=== PATIENT | female | born 1955 | race Caucasian/White ===

== ENCOUNTER → 2017-01-01 | Outpatient (CLI) | payer BC ==
--- NOTE | 2017-01-02 10:27 | MM ---
Reason for exam: screening (asymptomatic). Last mammogram was performed 1 year and 1 month ago. History: Patient is postmenopausal. Family history of breast cancer in paternal cousin at age 40 and breast cancer in maternal cousin at age 50. Took estrogen for 2 years. Physical Findings: A clinical breast exam by your physician is recommended on an annual basis and results should be correlated with mammographic findings. MG Screening Mammo w CAD Bilateral CC and MLO view(s) were taken. Prior study comparison: December 05, 2015, bilateral MG screening mammo w CAD. October 25, 2014, bilateral MG screening mammo w CAD. There are scattered fibroglandular densities. There is no discrete abnormality. No significant changes when compared with prior studies. ASSESSMENT: Negative, BI-RAD 1 RECOMMENDATION: Routine screening mammogram of both breasts in 1 year.
== END | disposition home or self-care (01) ==
LOC: RADMAMWWP 07:50
PROVIDERS: ATTEND Obstetrics & Gynecology
DX: Z12.31 Encounter for screening mammogram for malignant neoplasm of breast (principal); Z80.3 Family history of malignant neoplasm of breast

== ENCOUNTER → 2018-01-29 | Outpatient (CLI) | payer BC ==
--- NOTE | 2018-01-30 12:04 | MM ---
Reason for exam: screening (asymptomatic). Last mammogram was performed 1 year and 1 month ago. History: Patient is postmenopausal. Family history of breast cancer in paternal cousin at age 40 and breast cancer in maternal cousin at age 50. Took estrogen for 2 years. Physical Findings: A clinical breast exam by your physician is recommended on an annual basis and results should be correlated with mammographic findings. MG 3D Screening Mammo W/Cad Bilateral CC and MLO view(s) were taken. Prior study comparison: January 01, 2017, bilateral MG screening mammo w CAD. December 05, 2015, bilateral MG screening mammo w CAD. There are scattered fibroglandular densities. No significant changes when compared with prior studies. ASSESSMENT: Benign, BI-RAD 2 RECOMMENDATION: Routine screening mammogram of both breasts in 1 year.
== END | disposition home or self-care (01) ==
LOC: RADMAMWWP 07:50
PROVIDERS: ATTEND Obstetrics & Gynecology
DX: Z12.31 Encounter for screening mammogram for malignant neoplasm of breast (principal); Z80.3 Family history of malignant neoplasm of breast
CPT/HCPCS: 77063; 77067

== ENCOUNTER → 2019-02-12 | Outpatient (CLI) | payer BC ==
--- NOTE | 2019-02-16 08:52 | MM ---
Reason for exam: screening (asymptomatic). Last mammogram was performed 1 year ago. History: Patient is postmenopausal. Family history of breast cancer in paternal cousin at age 40 and breast cancer in maternal cousin at age 50. Took estrogen for 2 years. Physical Findings: A clinical breast exam by your physician is recommended on an annual basis and results should be correlated with mammographic findings. MG 3D Screening Mammo W/Cad Bilateral CC and MLO view(s) were taken. Prior study comparison: January 29, 2018, bilateral MG 3d screening mammo w/cad. January 01, 2017, bilateral MG screening mammo w CAD. There are scattered fibroglandular densities. Superior asymmetric density right breast incompletely disperses on 3D. No clear correlate on MLO. ASSESSMENT: Incomplete: need additional imaging evaluation, BI-RAD 0 RECOMMENDATION: Special view mammogram of the right breast. (3D) If lesion persists on supplemental views, image directed ultrasound is recommended. [facility] will attempt to contact patient to return for supplemental views and ultrasound if indicated.
== END | disposition home or self-care (01) ==
LOC: RADMAMWWP 15:00
PROVIDERS: ATTEND Obstetrics & Gynecology
DX: Z12.31 Encounter for screening mammogram for malignant neoplasm of breast (principal); Z80.3 Family history of malignant neoplasm of breast
CPT/HCPCS: 77063; 77067

== ENCOUNTER → 2019-02-17 | Outpatient (CLI) | payer BC ==
--- NOTE | 2019-02-17 10:31 | MM ---
Reason for exam: additional evaluation requested from abnormal screening. Last mammogram was performed less than 1 month ago. History: Patient is postmenopausal. Family history of breast cancer in paternal cousin at age 40 and breast cancer in maternal cousin at age 50. Took estrogen for 2 years. Physical Findings: Nurse did not find any significant physical abnormalities on exam. MG 3D Work Up W/Cad RT ML and spot compression MLO view(s) were taken of the right breast. Prior study comparison: February 12, 2019, bilateral MG 3d screening mammo w/cad. January 29, 2018, bilateral MG 3d screening mammo w/cad. There are scattered fibroglandular densities. No distinct lesion persists on additional views. These results were verbally communicated with the patient and result sheet given to the patient on 02/17/19. ASSESSMENT: Negative, BI-RAD 1 RECOMMENDATION: Return to routine screening mammogram schedule for both breasts.
== END | disposition home or self-care (01) ==
LOC: RADMAMWWP 09:24
PROVIDERS: ATTEND Obstetrics & Gynecology
DX: R92.8 Other abnormal and inconclusive findings on diagnostic imaging of breast (principal)
CPT/HCPCS: 77061; 77065

== ENCOUNTER → 2020-10-10 | Outpatient (CLI) | payer BC ==
--- NOTE | 2020-10-11 11:18 | MM ---
Reason for exam: screening (asymptomatic). Last mammogram was performed 1 year and 8 months ago. History: Patient is postmenopausal. Family history of breast cancer in paternal cousin at age 40 and breast cancer in maternal cousin at age 50. Took hormonal contraceptives for 10 years. Took estrogen for 2 years. Physical Findings: A clinical breast exam by your physician is recommended on an annual basis and results should be correlated with mammographic findings. MG 3D Screening Mammo W/Cad Bilateral CC and MLO view(s) were taken. Prior study comparison: February 17, 2019, right breast MG 3d work up w/cad RT. February 12, 2019, bilateral MG 3d screening mammo w/cad. There are scattered fibroglandular densities. There is no discrete abnormality. ASSESSMENT: Negative, BI-RAD 1 RECOMMENDATION: Routine screening mammogram of both breasts in 1 year.
== END | disposition home or self-care (01) ==
LOC: RADMAMWWP 13:07
PROVIDERS: ATTEND Obstetrics & Gynecology
DX: Z12.31 Encounter for screening mammogram for malignant neoplasm of breast (principal); Z80.3 Family history of malignant neoplasm of breast
CPT/HCPCS: 77063; 77067

== ENCOUNTER 2021-11-20 10:08 | Observation (INO) | payer BC ==
[2021-11-20] MEDS ORDERED: SODIUM CHLORIDE 0.9% 500 ML 500 ML IV STA (10:39)
--- NOTE | 2021-11-20 10:46 | ED ---
General Adult HPI - General Source: patient Mode of arrival: ambulatory Limitations: no limitations <Carolina Valdez - Last Filed: 11/20/21 16:05> <Lisa Snell - Last Filed: 11/21/21 14:53> - General Chief complaint: Shortness of Breath Stated complaint: Fever/SOB - History of Present Illness Initial comments: This 66-year-old female presents emergency department with increased shortness of breath since Saturday. Patient states she had right ankle surgery in [place] on 10/27/21 and traveled 3 days home from [place] a couple days after her surgery. Patient states she was doing well with no symptoms until 3 days ago when she began to experience pain with deep breathing, pain with coughing and mild shortness of breath that has been progressively worsening over the last couple of days. Patient denies having any clots in her past. Patient denies being on blood thinners for states she does take aspirin daily. Patient states her pain is 8/10 and she describes as tightness. Patient denies any signs or symptoms of DVT of right leg such as calf tenderness, warmth, swelling or erythema. Patient states she did have a fever of 100.5 on Saturday evening. Patient states she has a little bit less of an appetite the last couple of days. Patient denies any abdominal pain, headaches, nausea, vomiting, hemoptysis, change in vision, change in bowel or bladder, weakness. (Carolina Valdez) - Related Data Home Medications Medication Instructions Recorded Confirmed Ascorbic Acid [Vitamin C] 1,000 mg PO DAILY 11/20/21 11/20/21 Calcium Carbonate [Calcium] 600 mg PO DAILY 11/20/21 11/20/21 Cholecalciferol [Vitamin D3 (25 50 mcg PO DAILY 11/20/21 11/20/21 Mcg = 1000 Iu)] Famotidine 20 mg PO DAILY 11/20/21 11/20/21 Multivitamins, Thera [Multivitamin 1 tab PO DAILY 11/20/21 11/20/21 (formulary)] guaiFENesin [Mucinex] 600 mg PO DAILY 11/20/21 11/20/21 Previous Rx's Medication Instructions Recorded Apixaban [Eliquis Starter Pack 5 - 10 mg PO DIRECTED 30 Days 11/21/21 (for VTE)] #1 each HYDROcodone/APAP 5-325MG [[place] 1 - 2 each PO Q6H PRN #24 tab 11/21/21 5-325] Allergies Allergy/AdvReac Type Severity Reaction Status Date / Time codeine AdvReac Dizziness Verified 11/20/21 11:51 Review of Systems ROS Other: All systems not noted in ROS Statement are negative. <RameshpaulieCarolina - Last Filed: 11/20/21 16:05> ROS Other: All systems not noted in ROS Statement are negative. <Lisa Snell - Last Filed: 11/21/21 14:53> ROS Statement: Those systems with pertinent positive or pertinent negative responses have been documented in the HPI. Past Medical History Past Medical History: No Reported History History of Any Multi-Drug Resistant Organisms: None Reported Past Surgical History: Orthopedic Surgery Past Psychological History: No Psychological Hx Reported Smoking Status: Never smoker Past Alcohol Use History: None Reported Past Drug Use History: None Reported - Past Family History Father Family Medical History: Dementia Additional Family Medical History / Comment(s): Father at 75yrs from alzheimer's. Mother Additional Family Medical History / Comment(s): Mother had heart issues, she lived to be 99yrs old. <CourtneyCarolina - Last Filed: 11/20/21 16:05> General Exam Limitations: no limitations General appearance: alert, in no apparent distress Head exam: Present: atraumatic, normocephalic Eye exam: Present: normal appearance, PERRL, EOMI Pupils: Present: normal accommodation ENT exam: Present: normal exam, mucous membranes moist Neck exam: Present: full ROM Respiratory exam: Present: normal lung sounds bilaterally. Absent: respiratory distress, wheezes, rales, rhonchi, stridor Cardiovascular Exam: Present: normal rhythm, tachycardia (112), normal heart sounds. Absent: systolic murmur, diastolic murmur, rubs, gallop, clicks GI/Abdominal exam: Present: soft, normal bowel sounds. Absent: distended, tenderness, guarding, rebound, rigid Extremities exam: Present: full ROM, normal capillary refill, joint swelling (Small bruise on anterior surface of the right martins.), calf tenderness (Patient without tenderness, erythema or warmth towards right calf. Patient is wearing boot and has been nonweightbearing on right lower extremity since her surgery on June 26. Full sensation in lower extremity. DP pulses palpable. Patient with Mauricio wrap around right ankle) Back exam: Present: full ROM. Absent: CVA tenderness (R), CVA tenderness (L), paraspinal tenderness, vertebral tenderness Neurological exam: Present: alert, oriented X3, CN II-XII intact Psychiatric exam: Present: normal affect, normal mood Skin exam: Present: warm, dry, intact, normal color. Absent: rash <Carolina Valdez - Last Filed: 11/20/21 16:05> Course Vital Signs 11/20/21 11/20/21 11/20/21 10:19 11:03 11:28 Temperature 98.4 F Pulse Rate 117 H 95 Respiratory 18 22 18 Rate Blood Pressure 129/69 131/82 O2 Sat by Pulse 95 93 L Oximetry 11/20/21 11/20/21 11/20/21 13:00 15:00 16:16 Temperature Pulse Rate 102 H 100 103 H Respiratory 20 18 18 Rate Blood Pressure 136/78 132/76 130/68 O2 Sat by Pulse 98 96 95 Oximetry 11/20/21 18:37 Temperature Pulse Rate 92 Respiratory 20 Rate Blood Pressure 116/68 O2 Sat by Pulse 96 Oximetry EKG Findings - EKG Comments: EKG Findings:: EKG impression,: Sinus tachycardia. Ventricular rate 101 bpm. NE interval 132. QRS duration 101. QT/QTC 315/373 <Carolina Valdez - Last Filed: 11/20/21 16:05> Medical Decision Making - Lab Data Result diagrams: 11/20/21 11:03 11/20/21 11:39 <Carolina Valdez - Last Filed: 11/20/21 16:05> - Lab Data Result diagrams: 11/21/21 02:57 11/21/21 02:57 <Lisa Snell - Last Filed: 11/21/21 14:53> - Medical Decision Making This 66-year-old female presents emergency Department with increased shortness of breath since Saturday afternoon. Patient did recently have right ankle surgery on 10/27 in traveled 3 days home from [place] a few days after her surgery. CT chest angiogram impression: Bilateral acute pulmonary embolism involving secondary and distal branches on the right. Bilateral infiltrate and small pleural effusion. Pulmonary infarction of the differential diagnosis. I did speak with WESTLEY Keen who is working with and agreed to admit patient to their service for observation, further workup and treatment. She did request pulmonary and cardiology consults which I did place. Heparin protocol was followed. Discussed case in detail with my attending, . Patient verbally agreed to plan to stay in hospital for further workup, evaluation and treatment. (Carolina Valdez) I was available for consultation in the emergency department. The history and physical exam were done by the midlevel provider. I was consulted for this patients care. I reviewed the case with the midlevel provider and based on their presentation of the patient, I agree with the assessment, medical decision making and plan of care as documented. Chart was dictated using [employer] dictation software. Attempts were made to correct any dictation errors however some typographical errors may persist. (Lisa Snell) - Lab Data Lab Results 11/20/21 11/20/21 11/20/21 Range/Units 11:03 11:03 11:03 WBC 10.4 (3.8-10.6) k/uL RBC 4.10 (3.80-5.40) m/uL Hgb 13.2 (11.4-16.0) gm/dL Hct 39.5 (34.0-46.0) % MCV 96.5 (80.0-100.0) fL MCH 32.2 (25.0-35.0) pg MCHC 33.4 (31.0-37.0) g/dL RDW 13.0 (11.5-15.5) % Plt Count 295 (150-450) k/uL MPV 8.1 Neutrophils % 81 % Lymphocytes % 9 % Monocytes % 7 % Eosinophils % 1 % Basophils % 0 % Neutrophils # 8.4 H (1.3-7.7) k/uL Lymphocytes # 1.0 (1.0-4.8) k/uL Monocytes # 0.7 (0-1.0) k/uL Eosinophils # 0.1 (0-0.7) k/uL Basophils # 0.0 (0-0.2) k/uL PT 10.5 (9.0-12.0) sec INR 1.0 (<1.2) APTT 23.2 (22.0-30.0) sec Sodium (137-145) mmol/L Potassium (3.5-5.1) mmol/L Chloride (98-107) mmol/L Carbon Dioxide (22-30) mmol/L Anion Gap mmol/L BUN (7-17) mg/dL Creatinine (0.52-1.04) mg/dL Est GFR (CKD-EPI)AfAm (>60 ml/min/1.73 sqM) Est GFR (CKD-EPI)NonAf (>60 ml/min/1.73 sqM) Glucose (74-99) mg/dL Calcium (8.4-10.2) mg/dL Magnesium (1.6-2.3) mg/dL Total Bilirubin (0.2-1.3) mg/dL AST (14-36) U/L ALT (4-34) U/L Alkaline Phosphatase (38-126) U/L Troponin I (0.000-0.034) ng/mL NT-Pro-B Natriuret Pep 60 pg/mL Total Protein (6.3-8.2) g/dL Albumin (3.5-5.0) g/dL 11/20/21 11/20/21 Range/Units 11:39 11:39 WBC (3.8-10.6) k/uL RBC (3.80-5.40) m/uL Hgb (11.4-16.0) gm/dL Hct (34.0-46.0) % MCV (80.0-100.0) fL MCH (25.0-35.0) pg MCHC (31.0-37.0) g/dL RDW (11.5-15.5) % Plt Count (150-450) k/uL MPV Neutrophils % % Lymphocytes % % Monocytes % % Eosinophils % % Basophils % % Neutrophils # (1.3-7.7) k/uL Lymphocytes # (1.0-4.8) k/uL Monocytes # (0-1.0) k/uL Eosinophils # (0-0.7) k/uL Basophils # (0-0.2) k/uL PT (9.0-12.0) sec INR (<1.2) APTT (22.0-30.0) sec Sodium 135 L (137-145) mmol/L Potassium 4.3 (3.5-5.1) mmol/L Chloride 101 (98-107) mmol/L Carbon Dioxide 25 (22-30) mmol/L Anion Gap 9 mmol/L BUN 18 H (7-17) mg/dL Creatinine 0.68 (0.52-1.04) mg/dL Est GFR (CKD-EPI)AfAm >90 (>60 ml/min/1.73 sqM) Est GFR (CKD-EPI)NonAf >90 (>60 ml/min/1.73 sqM) Glucose 101 H (74-99) mg/dL Calcium 8.7 (8.4-10.2) mg/dL Magnesium 2.1 (1.6-2.3) mg/dL Total Bilirubin 0.8 (0.2-1.3) mg/dL AST 24 (14-36) U/L ALT 17 (4-34) U/L Alkaline Phosphatase 109 (38-126) U/L Troponin I <0.012 (0.000-0.034) ng/mL NT-Pro-B Natriuret Pep pg/mL Total Protein 7.0 (6.3-8.2) g/dL Albumin 3.7 (3.5-5.0) g/dL Disposition <Carolina Valdez - Last Filed: 11/20/21 16:05> <Lisa Snell - Last Filed: 11/21/21 14:53> Clinical Impression: Pulmonary embolism, bilateral, Shortness of breath Disposition: ADMITTED IP TO THIS [facility] Condition: Stable
[2021-11-20 11:17] LABS: Basophils % (A) 0 %; Eosinophils # (A) 0.1 k/uL (0-0.7); Eosinophils % (A) 1 %; HCT 39.5 % (34.0-46.0); HGB 13.2 gm/dL (11.4-16.0); Lymphocytes % (A) 9 %; MCH 32.2 pg (25.0-35.0); MCHC 33.4 g/dL (31.0-37.0); MCV 96.5 fL (80.0-100.0); Mean Platelet Volume 8.1; Monocytes # (A) 0.7 k/uL (0-1.0); Monocytes % (A) 7 %; Neutrophils # (A) 8.4 k/uL (1.3-7.7); Neutrophils % (A) 81 %; Platelet Count 295 k/uL (150-450); WBC 10.4 k/uL (3.8-10.6)
[2021-11-20 11:29] LABS: Partial Thromboplastin Time 23.2 sec (22.0-30.0); Prothrombin Time 10.5 sec (9.0-12.0)
[2021-11-20 12:07] LABS: ALT 17 U/L (4-34); AST 24 U/L (14-36); African American GFR (CKD) >90 (>60 ml/min/1.73 sqM); Albumin 3.7 g/dL (3.5-5.0); Alkaline Phosphatase 109 U/L (38-126); Anion Gap 9 mmol/L; Blood Urea Nitrogen 18 mg/dL (7-17); Calcium 8.7 mg/dL (8.4-10.2); Carbon Dioxide 25 mmol/L (22-30); Chloride 101 mmol/L (98-107); Glucose 101 mg/dL (74-99); Magnesium 2.1 mg/dL (1.6-2.3); Non-African American GFR(CKD) >90 (>60 ml/min/1.73 sqM); Potassium 4.3 mmol/L (3.5-5.1); Sodium 135 mmol/L (137-145); Total Bilirubin 0.8 mg/dL (0.2-1.3)
[2021-11-20] MEDS ORDERED: HEPARIN SODIUM 1,000 UN/ML (10ML VL) IV ONE (13:19)
[2021-11-20] MEDS ORDERED: HEPARIN SODIUM 1,000 UN/ML (10ML VL) IV PRN (13:19)
--- NOTE | 2021-11-20 13:21 | CT ---
EXAMINATION TYPE: CT chest angio for PE DATE OF EXAM: 11/20/2021 COMPARISON: None HISTORY: None CT DLP: 441.2 mGycm Automated exposure control for dose reduction was used. CONTRAST: CT Chest for pulmonary embolism performed with with IV Contrast, patient injected with 78 cc mL of Is ovue 370. FINDINGS: LUNGS: Bilateral pleural effusion and consolidation. No pneumothorax.. MEDIASTINUM: There are filling defects with facet and secondary branches and distal branches of the r ight pulmonary artery with greater involvement of the wall involving the lower lobe. Also suspect to a lesser extent involving the secondary and distal branches involving the left lung w ith greater involvement involving the lower lobe. The RV LV ratio is less than 1. Aorta of normal caliber. Heart size normal. No significant coronary artery calcification. OTHER: Small hiatal hernia. Hypertrophic and degenerative changes of the spine. IMPRESSION: 1. Bilateral acute pulmonary embolism involving secondary and distal branches are on the right. Repor t called to emergency room clinician 1:15 PM 11/20/2021. 2. Bilateral infiltrate and small pleural effusion. Pulmonary infarction of the differential diagnosi s
[2021-11-20] MEDS ORDERED: NALOXONE 0.4 MG/ML 1 ML VIAL IV PRN (14:03)
[2021-11-20] MEDS ORDERED: ACETAMINOPHEN TAB 325 MG TAB PO PRN (14:03)
[2021-11-20] MEDS: HEPARIN SOD,PORK IN 0.45% NACL 25,000 UNIT in 0.45% NACL 1 250ML.BAG IV SCH (14:58)
[2021-11-20] MEDS: SODIUM CHLORIDE 0.9% 1,000 ML IV SCH ×2 (15:05→20:21)
--- NOTE | 2021-11-20 15:33 | P.CRDCN ---
History of Present Illness Consult date: 11/20/21 History of present illness: History of Present Illness: The patient is a 66-year-old female with no prior documented cardiac history who while in [place] recently found and fractured her right ankle. She had surgery while in [place]. On Saturday she started to complain of dyspnea and lower chest discomfort, radiating to the back, respirophasic. She had low-grade fever. She denies any dizziness or palpitations. She denies any PND or orthopnea. She had no calf pain or swelling. She has no prior history of pulmonary embolism. Her CT angiogram of the chest showed evidence of pulmonary embolism but no evidence of RV strain. The patient has no history of smoking, hypertension or diabetes. She is usually active physically Review of Systems: Respiratory: She has the recent episode of dyspnea and chest discomfort GI: She had nausea and vomiting today. No history of peptic ulcer disease. No recent GI bleed. : No hematuria or dysuria. Nervous System: No stroke or seizure. Physical Examination: Blood pressure 130/70 the heart rate in the 60s Head: Normocephalic. Eyes: Sclerae nonicteric. Neck: Good carotid upstroke, no bruit, no jugular venous distention. Lungs: Clear to auscultation. Heart: Regular rate and rhythm, S1-S2, no S3, no rub. No murmur. Abdomen: Soft nontender, positive bowel sounds no organomegaly. Extremities: Cast on the right leg, left flank no calf pain or swelling. Labs: Troponin less than 0.012, BNP of 60. Telemetry shows sinus mechanism. CT angiogram of the chest is consistent with pulmonary embolism but no evidence of RV strain Impression: 1. Pulmonary embolism with no evidence of RV strain and possible pulmonary i nfarction. In few of the negative troponin and NT proBNP and the fact that her computed tomography scan showed no RV strain the patient is not a candidate for TPA or EKOS. 2. Status post fracture of the right ankle Plan: 1. Continue IV heparin 2. Reviewed the echocardiogram 3. Consider changing to a direct oral anticoagulant in the next 24-48 hours 4. Continue anticoagulation for 6 months 5. Thank you for this consult we will follow with you. Past Medical History Past Medical History: No Reported History Additional Past Medical History / Comment(s): UTI History of Any Multi-Drug Resistant Organisms: None Reported Past Surgical History: Orthopedic Surgery Additional Past Surgical History / Comment(s): 10/27/21 R ankle surgery d/t fracture with hardware, colonoscopy, wisdom teeth extractions. Past Anesthesia/Blood Transfusion Reactions: No Reported Reaction Past Psychological History: No Psychological Hx Reported Additional Psychological History / Comment(s): Pt resides with her spouse. She is currently using a walker/wheelchair d/t R ankle surgery. She is nonwt bearing. Smoking Status: Never smoker Past Alcohol Use History: Occasional Past Drug Use History: None Reported - Past Family History Father Family Medical History: Dementia Additional Family Medical History / Comment(s): Father at 75yrs from alzheimer's. Mother Additional Family Medical History / Comment(s): Mother had heart issues, she lived to be 99yrs old. Medications and Allergies Home Medications Medication Instructions Recorded Confirmed Type Ascorbic Acid [Vitamin C] 1,000 mg PO DAILY 11/20/21 11/20/21 History Aspirin EC [Ecotrin Low Dose] 81 mg PO BID 11/20/21 11/20/21 History Calcium Carbonate [Calcium] 600 mg PO DAILY 11/20/21 11/20/21 History Cholecalciferol [Vitamin D3 (25 50 mcg PO DAILY 11/20/21 11/20/21 History Mcg = 1000 Iu)] Famotidine 20 mg PO DAILY 11/20/21 11/20/21 History Multivitamins, Thera [Multivitamin 1 tab PO DAILY 11/20/21 11/20/21 History (formulary)] guaiFENesin [Mucinex] 600 mg PO DAILY 11/20/21 11/20/21 History Allergies Allergy/AdvReac Type Severity Reaction Status Date / Time codeine AdvReac Dizziness Verified 11/20/21 11:51 Physical Exam Vitals: Vital Signs Temp Pulse Resp BP Pulse Ox 11/20/21 11:28 95 18 131/82 93 L 11/20/21 11:03 22 11/20/21 10:19 98.4 F 117 H 18 129/69 95 Intake and Output 11/20/21 11/20/21 11/20/21 06:59 14:59 22:59 Other: Weight 90.718 kg Results 11/20/21 11:03 11/20/21 11:39 Cardiac Enzymes 11/20/21 11/20/21 Range/Units 11:39 11:39 AST 24 (14-36) U/L Troponin I <0.012 (0.000-0.034) ng/mL Coagulation 11/20/21 Range/Units 11:03 PT 10.5 (9.0-12.0) sec APTT 23.2 (22.0-30.0) sec CBC 11/20/21 Range/Units 11:03 WBC 10.4 (3.8-10.6) k/uL RBC 4.10 (3.80-5.40) m/uL Hgb 13.2 (11.4-16.0) gm/dL Hct 39.5 (34.0-46.0) % Plt Count 295 (150-450) k/uL Comprehensive Metabolic Panel 11/20/21 Range/Units 11:39 Sodium 135 L (137-145) mmol/L Potassium 4.3 (3.5-5.1) mmol/L Chloride 101 (98-107) mmol/L Carbon Dioxide 25 (22-30) mmol/L BUN 18 H (7-17) mg/dL Creatinine 0.68 (0.52-1.04) mg/dL Glucose 101 H (74-99) mg/dL Calcium 8.7 (8.4-10.2) mg/dL AST 24 (14-36) U/L ALT 17 (4-34) U/L Alkaline Phosphatase 109 (38-126) U/L Total Protein 7.0 (6.3-8.2) g/dL Albumin 3.7 (3.5-5.0) g/dL Current Medications Generic Name Dose Route Start Last Admin Trade Name Joseq PRN Reason Stop Dose Admin Acetaminophen 650 mg 11/20/21 14:03 Acetaminophen Tab 325 Mg Tab PO Q6HR PRN Mild Pain or Fever > 100.5 Ascorbic Acid 1,000 mg 11/21/21 09:00 Ascorbic Acid 500 Mg Tab PO DAILY [facility] Calcium Carbonate/Glycine 500 mg 11/21/21 09:00 Calcium Carbonate 500 Mg Chewable PO DAILY [facility] Cholecalciferol 50 mcg 11/21/21 09:00 Cholecalciferol 25 Mcg (1000 Iu) Tablet PO DAILY LYNN Famotidine 20 mg 11/21/21 09:00 Famotidine 20 Mg Tab PO DAILY [facility] Heparin Sodium (Porcine) 0 unit 11/20/21 13:19 Heparin Sodium 1,000 Un/Ml (10ml Vl) IV PER PROTOCOL PRN Low PTT Protocol Heparin Sodium/Sodium Chloride 250 mls @ 16.329 mls/hr 11/20/21 13:30 11/20/21 14:58 25,000 unit/ Sodium Chloride IV 18 units/kg/hr .[id number] LYNN 16.329 mls/hr Administration Protocol 18 UNITS/KG/HR Sodium Chloride 1,000 mls @ 75 mls/hr 11/20/21 14:15 11/20/21 15:05 Saline 0.9% IV 75 mls/hr .[id number] LYNN Administration Multivitamins 1 each 11/21/21 09:00 Multivitamins, Thera 1 Each Tab PO DAILY LYNN Naloxone HCl 0.2 mg 11/20/21 14:03 Naloxone 0.4 Mg/Ml 1 Ml Vial IV Q2M PRN Opioid Reversal Intake and Output 11/20/21 11/20/21 11/20/21 06:59 14:59 22:59 Other: Weight 90.718 kg Patient Weight 11/21/21 06:59 Weight 90.718 kg 11/20/21 11:03 11/20/21 11:39
--- NOTE | 2021-11-20 17:19 | P.HPIM ---
History of Present Illness H&P Date: 11/20/21 History of Presenting Illness: Patient is a very pleasant 66-year-old female with no significant past medical history. She recently had a dislocated fractured tibial and fibula resulting in surgical repair in [place] on 10/27/21. Patient reports shortly after discharge her and her traveled 3 days by car home from [place]. Patient states she has remained nonweightbearing to her right lower extremity as instructed and has been taking aspirin 81 mg twice daily for DVT prophylaxis. Patient reports that over the past 4 days she has been experiencing progressively worsening shortness of breath, cough and pain to left ribs when coughing. Patient denies having any recent fevers, chills, diaphoresis, palpitations, abdominal pain, nausea, vomiting, or experiencing any redness/swelling/tingling/numbness in her lower extremities. In the emergency department patient underwent full evaluation and was found to be 93% on room air and tachycardic with heart rate of 102. patient underwent a CTA which revealed bilateral acute pulmonary emboli involving the secondary and distal branches and bilateral infiltrate with small pleural effusion pulmonary infarct was not able to be ruled out. EKG was completed showing sinus tachycardia at 101 bpm with no noted T-wave or ST abnormalities, showing no signs of acute ischemia. CBC and CMP were unremarkable. Troponin negative at less than 0.012. ProBNP 60. Patient was started on heparin infusion and admitted under our services with consultation to pulmonology and cardiology. Review of systems: Pertinent positives and negatives as discussed in HPI, a complete review of systems was performed and all other systems are negative. Physical exam: Vital signs reviewed and stable. General: Nontoxic, no distress and appears stated age. Derm: Skin warm and dry, normal coloration for ethnicity. Head: Atraumatic, normocephalic and symmetric. Eyes: EOMs intact, no lid lag, and anicteric sclera Mouth: no lip lesions, mucus membranes moist Cardiovascular: regular rate and rhythm with normal S1S2, no murmur, positive posterior tibial pulses bilaterally, and cap refill < 2 seconds. Lungs: Respirations even, regular, and unlabored on room air. Lungs CTA bilaterally, no rhonchi, no rales, no wheezing, and no accessory muscle usage. Abdominal: soft, nontender to palpation, no guarding, no appreciable organomegal y Ext: ROM intact. No gross muscle atrophy, no edema, no contractures Neuro: Speech clear, face symmetrical and CN II-XII grossly intact with no noted focal neuro deficits Psych: Alert and oriented to person, place, time, and situation. Appropriate and pleasant affect. Assessment and Plan of Care: Acute Bilateral pulmonary emboli -Continuation of IV heparin infusion, may transition to oral anticoagulation once echocardiogram is completed and right heart strain is ruled out. -Echocardiogram. -continuous telemetry monitoring -Consult cardiology -Consult pulmonology -Symptomatic care and pain management. -Oxygenation as needed to maintain SpO2 equal to or greater than 92%. The patient is admitted with an anticipated less than 2 midnight stay for evaluation of Acute bilateral PE. CODE STATUS: Full Code DVT prophylaxis: Heparin infusion Discussed with: Patient and pt's Anticipated discharge date: 1-[address]: Home A total of 42 minutes was spent on the care of this complex patient more than 50% of the time was spent in counseling and care coordination. Osmani Zimmerman NP rendered care for this patient independently, reviewed the findings and plan as documented in the note above. I did not physically speak with or examine the patient on this date. Likely home in AM if not sign of heart strain on echo. Past Medical History Past Medical History: No Reported History History of Any Multi-Drug Resistant Organisms: None Reported Past Surgical History: Orthopedic Surgery Past Psychological History: No Psychological Hx Reported Smoking Status: Never smoker Past Alcohol Use History: None Reported Past Drug Use History: None Reported - Past Family History Father Family Medical History: Dementia Additional Family Medical History / Comment(s): Father at 75yrs from alzheimer's. Mother Additional Family Medical History / Comment(s): Mother had heart issues, she lived to be 99yrs old. Medications and Allergies Home Medications Medication Instructions Recorded Confirmed Type Ascorbic Acid [Vitamin C] 1,000 mg PO DAILY 11/20/21 11/20/21 History Aspirin EC [Ecotrin Low Dose] 81 mg PO BID 11/20/21 11/20/21 History Calcium Carbonate [Calcium] 600 mg PO DAILY 11/20/21 11/20/21 History Cholecalciferol [Vitamin D3 (25 50 mcg PO DAILY 11/20/21 11/20/21 History Mcg = 1000 Iu)] Famotidine 20 mg PO DAILY 11/20/21 11/20/21 History Multivitamins, Thera [Multivitamin 1 tab PO DAILY 11/20/21 11/20/21 History (formulary)] guaiFENesin [Mucinex] 600 mg PO DAILY 11/20/21 11/20/21 History Allergies Allergy/AdvReac Type Severity Reaction Status Date / Time codeine AdvReac Dizziness Verified 11/20/21 11:51 Physical Exam Osteopathic Statement: *. No significant issues noted on an osteopathic structural exam other than those noted in the History and Physical/Consult. Vitals: Vital Signs Temp Pulse Resp BP Pulse Ox 11/20/21 11:28 95 18 131/82 93 L 11/20/21 11:03 22 11/20/21 10:19 98.4 F 117 H 18 129/69 95 Intake and Output 11/19/21 11/20/21 11/20/21 22:59 06:59 14:59 Other: Weight 90.718 kg Results CBC & Chem 7: 11/20/21 11:03 11/20/21 11:39 Labs: Abnormal Lab Results - Last 24 Hours (Table) 11/20/21 11/20/21 Range/Units 11:03 11:39 Neutrophils # 8.4 H (1.3-7.7) k/uL Sodium 135 L (137-145) mmol/L BUN 18 H (7-17) mg/dL Glucose 101 H (74-99) mg/dL
[2021-11-20] MEDS: HYDROcodone/APAP 5-325MG 1 EACH TAB PO PRN (21:16)
[2021-11-21 00:04] LABS: Appearance,Urine Clear (Clear); Bilirubin,Urine Negative (Negative); Blood,Urine Negative (Negative); Color,Urine Yellow; Glucose,Urine (UA) Negative (Negative); Ketones,Urine 2+ (Negative); Leukocyte Esterase,Urine Negative (Negative); Nitrite,Urine Negative (Negative); Protein,Urine Negative (Negative); Urobilinogen,Urine <2.0 mg/dL (<2.0)
[2021-11-21 03:52] LABS: Basophils % (A) 0 %; Eosinophils # (A) 0.1 k/uL (0-0.7); Eosinophils % (A) 1 %; HCT 31.4 % (34.0-46.0); HGB 10.3 gm/dL (11.4-16.0); Lymphocytes # (A) 1.2 k/uL (1.0-4.8); Lymphocytes % (A) 11 %; MCH 32.5 pg (25.0-35.0); MCHC 32.7 g/dL (31.0-37.0); MCV 99.3 fL (80.0-100.0); Mean Platelet Volume 8.3; Monocytes # (A) 0.7 k/uL (0-1.0); Monocytes % (A) 6 %; Neutrophils # (A) 8.4 k/uL (1.3-7.7); Neutrophils % (A) 79 %; Platelet Count 294 k/uL (150-450); RBC 3.16 m/uL (3.80-5.40); RDW 13.3 % (11.5-15.5); WBC 10.6 k/uL (3.8-10.6)
[2021-11-21] MEDS: HYDROcodone/APAP 5-325MG 1 EACH TAB PO PRN ×2 (04:03→09:44)
[2021-11-21] MEDS: HEPARIN SOD,PORK IN 0.45% NACL 25,000 UNIT in 0.45% NACL 1 250ML.BAG IV SCH (04:05)
[2021-11-21 04:37] LABS: Potassium 4.3 mmol/L (3.5-5.1)
[2021-11-21 04:38] LABS: ALT 17 U/L (4-34); AST 35 U/L (14-36); African American GFR (CKD) >90 (>60 ml/min/1.73 sqM); Albumin 3.3 g/dL (3.5-5.0); Alkaline Phosphatase 110 U/L (38-126); Anion Gap 10 mmol/L; Blood Urea Nitrogen 13 mg/dL (7-17); Calcium 8.4 mg/dL (8.4-10.2); Carbon Dioxide 19 mmol/L (22-30); Chloride 106 mmol/L (98-107); Glucose 98 mg/dL (74-99); Non-African American GFR(CKD) >90 (>60 ml/min/1.73 sqM); Sodium 135 mmol/L (137-145); Total Bilirubin 0.8 mg/dL (0.2-1.3); Total Protein 6.3 g/dL (6.3-8.2)
[2021-11-21] MEDS: SODIUM CHLORIDE 0.9% 1,000 ML IV SCH (08:11)
[2021-11-21] MEDS ORDERED: FAMOTIDINE 20 MG TAB PO SCH (09:00)
[2021-11-21] MEDS ORDERED: ASCORBIC ACID 500 MG TAB PO SCH (09:00)
[2021-11-21] MEDS ORDERED: CHOLECALCIFEROL 25 MCG (1000 IU) TABLET PO SCH (09:00)
[2021-11-21] MEDS ORDERED: MULTIVITAMINS, THERA 1 EACH TAB PO SCH (09:00)
[2021-11-21] MEDS ORDERED: CALCIUM CARBONATE 500 MG CHEWABLE PO SCH (09:00)
--- NOTE | 2021-11-21 09:16 | P.PN ---
Subjective Progress Note Date: 11/21/21 PROGRESS NOTE The patient is a 66-year-old female who presented with evidence of progressive dyspnea and respirophasic chest pain. She was diagnosed with pulmonary embolism. She recently underwent right lower extremity surgery. Her computed tomography scan and her echocardiogram showed no evidence of RV strain. She continues to be in sinus mechanism without any evidence of arrhythmia. She continues to have chest discomfort with deep breathing. She is on IV heparin. PHYSICAL EXAMINATION: Blood pressure 117/68 heart rate 94 LUNGS: [Clear to auscultation] HEART: [Regular rate and rhythm, S1, S2. No S3. No systolic murmur] ABDOMEN: [Soft, nontender, no organomegaly] EXTREMETIES: [No edema, boot on the right lower extremity] LAB: Hemoglobin 10.3, BUN and creatinine 13 and 0.61. Echocardiogram showed a normal systolic function with trace tricuspid regurgitation. IMPRESSION: 1. Pulmonary embolism with no evidence of RV strain with possible pulmonary infarct 2. Status post recent ankle surgery PLAN: 1. Change to direct oral anticoagulant 2. Stop IV heparin 3. If stable probable discharge home soon and follow-up as an outpatient. Objective - Vital Signs Vital signs: Vital Signs Temp 97.6 F 11/21/21 08:10 Pulse 94 11/21/21 08:10 Resp 20 11/21/21 08:10 BP 117/68 11/21/21 08:10 Pulse Ox 94 L 11/21/21 08:10 Intake & Output 11/20/21 11/21/21 11/21/21 18:59 06:59 18:59 Intake Total 1851.696 118 Output Total 1400 Balance 451.696 118 Weight 90.718 kg Intake: Intake, IV Titration 1251.696 Amount Heparin Sod,Pork in 0.45% 201.696 NaCl 25,000 unit In 0.45 % NaCl 1 250ml.bag @ 18 UNITS/KG/HR 16.329 mls/hr IV .[id number] [facility] Rx#: [id number] Sodium Chloride 0.9% 1, 1050 000 ml @ 75 mls/hr IV . [id number] [facility] Rx#:[id number] Oral 600 118 Output: Urine 1400 - Labs CBC & Chem 7: 11/21/21 02:57 11/21/21 02:57 Labs: Abnormal Lab Results - Last 24 Hours (Table) 11/20/21 11/20/21 11/20/21 Range/Units 11:03 11:39 20:17 RBC (3.80-5.40) m/uL Hgb (11.4-16.0) gm/dL Hct (34.0-46.0) % Neutrophils # 8.4 H (1.3-7.7) k/uL APTT (22.0-30.0) sec Sodium 135 L (137-145) mmol/L Carbon Dioxide (22-30) mmol/L BUN 18 H (7-17) mg/dL Glucose 101 H (74-99) mg/dL Plasma Lactic Acid Rafael 0.5 L (0.7-2.0) mmol/L Albumin (3.5-5.0) g/dL Urine Ketones (Negative) 11/20/21 11/20/21 11/21/21 Range/Units 20:17 23:35 02:57 RBC 3.16 L (3.80-5.40) m/uL Hgb 10.3 L (11.4-16.0) gm/dL Hct 31.4 L (34.0-46.0) % Neutrophils # 8.4 H (1.3-7.7) k/uL APTT 74.9 H (22.0-30.0) sec Sodium (137-145) mmol/L Carbon Dioxide (22-30) mmol/L BUN (7-17) mg/dL Glucose (74-99) mg/dL Plasma Lactic Acid Rafael (0.7-2.0) mmol/L Albumin (3.5-5.0) g/dL Urine Ketones 2+ H (Negative) 11/21/21 11/21/21 Range/Units 02:57 02:57 RBC (3.80-5.40) m/uL Hgb (11.4-16.0) gm/dL Hct (34.0-46.0) % Neutrophils # (1.3-7.7) k/uL APTT 44.8 H (22.0-30.0) sec Sodium 135 L (137-145) mmol/L Carbon Dioxide 19 L (22-30) mmol/L BUN (7-17) mg/dL Glucose (74-99) mg/dL Plasma Lactic Acid Rafael (0.7-2.0) mmol/L Albumin 3.3 L (3.5-5.0) g/dL Urine Ketones (Negative)
[2021-11-21] MEDS ORDERED: APIXABAN 5 MG TAB PO SCH (09:30)
[2021-11-21] MEDS ORDERED: HYDROmorphone 0.5 MG/0.5 ML SYRINGE IVP PRN (09:50)
[2021-11-21 11:31] VITALS: BP 115/75; PULSE 74; RESP 18; TEMP 97.5
--- NOTE | 2021-11-21 11:59 | P.CNPUL ---
History of Present Illness Consult date: 11/21/21 Requesting physician: Osmani Zimmerman Reason for consult: pulmonary embolism Chief complaint: Right sided pleuritic chest pain and shortness of breath History of present illness: This is a 66-year-old female with no previous significant medical history. However patient was in [place] in October, and on October 27, patient fell and she sustained fracture of tibia and fibula and a dislocation of right ankle. Underwent surgery in [place], and she eventually drove home all the way to [place]. Has been doing fairly well until last Saturday patient developed severe sudden onset right-sided chest pain which was pleuritic in nature. Pain has been getting worse. And over the last few days, she has been developing some shortness of breath. No hemoptysis, no fever, no chills, and her cough was basically nonproductive. Patient presented to the ER, and CT angiogram of the chest showed bilateral pulmonary emboli involving the secondary and the distal branches and possibly pulmonary infarct on the right side. Patient was admitted, started on heparin, and this consult was initiated. Troponins were negative. BNP was low. Patient has been seen by other consultants, and the plan is to continue heparin, transitioned to oral anticoagulation therapy possibly eliqui or Xarelto, treat for 3-6 months. Review of Systems Constitutional: Negative HEENT: Negative Pulmonary: As noted in HPI Cardiac: Negative GI: Negative Genitourinary: Negative Musculoskeletal: Recent right tibial and fibular fracture requiring surgery and right ankle dislocation. Endocrine: Negative Hematologic: Negative no previous history of DVT or thromboembolic disease Neurological: Negative Psychiatric: Negative Skin: Negative Past Medical History Past Medical History: No Reported History Additional Past Medical History / Comment(s): UTI History of Any Multi-Drug Resistant Organisms: None Reported Past Surgical History: Orthopedic Surgery Additional Past Surgical History / Comment(s): 10/27/21 R ankle surgery d/t fracture with hardware, colonoscopy, wisdom teeth extractions. Past Anesthesia/Blood Transfusion Reactions: No Reported Reaction Past Psychological History: No Psychological Hx Reported Smoking Status: Never smoker Past Alcohol Use History: None Reported Past Drug Use History: None Reported - Past Family History Father Family Medical History: Dementia Additional Family Medical History / Comment(s): Father at 75yrs from alzheimer's. Mother Additional Family Medical History / Comment(s): Mother had heart issues, she lived to be 99yrs old. Medications and Allergies Home Medications Medication Instructions Recorded Confirmed Type Ascorbic Acid [Vitamin C] 1,000 mg PO DAILY 11/20/21 11/20/21 History Aspirin EC [Ecotrin Low Dose] 81 mg PO BID 11/20/21 11/20/21 History Calcium Carbonate [Calcium] 600 mg PO DAILY 11/20/21 11/20/21 History Cholecalciferol [Vitamin D3 (25 50 mcg PO DAILY 11/20/21 11/20/21 History Mcg = 1000 Iu)] Famotidine 20 mg PO DAILY 11/20/21 11/20/21 History Multivitamins, Thera [Multivitamin 1 tab PO DAILY 11/20/21 11/20/21 History (formulary)] guaiFENesin [Mucinex] 600 mg PO DAILY 11/20/21 11/20/21 History Allergies Allergy/AdvReac Type Severity Reaction Status Date / Time codeine AdvReac Dizziness Verified 11/20/21 11:51 Physical Exam Vitals: Vital Signs Temp Pulse Pulse Resp BP BP Pulse Ox 11/21/21 11:20 97.5 F L 74 18 115/75 94 L 11/21/21 09:39 20 11/21/21 08:10 97.6 F 94 20 117/68 94 L 11/21/21 04:00 99.1 F 95 18 115/62 95 11/20/21 23:40 98.6 F 86 18 118/64 95 11/20/21 20:00 98.5 F 96 18 124/74 96 11/20/21 18:37 92 20 116/68 96 11/20/21 16:16 103 H 18 130/68 95 11/20/21 15:00 100 18 132/76 96 11/20/21 13:00 102 H 20 136/78 98 Intake and Output 11/20/21 11/21/21 11/21/21 22:59 06:59 14:59 Intake Total 392.752 6418.912 223.557 Output Total 1400 Balance 101.784 349.912 223.557 Intake: IV 10 Invasive Line 1 10 Intake, IV Titration 577.667 2580.912 95.557 Amount Heparin Sod,Pork in 0.45% 101.784 99.912 95.557 NaCl 25,000 unit In 0.45 % NaCl 1 250ml.bag @ 18 UNITS/KG/HR 16.329 mls/hr IV .[id number] [facility] Rx#: [id number] Sodium Chloride 0.9% 1, 1050 000 ml @ 75 mls/hr IV . [id number] [facility] Rx#:[id number] Oral 600 118 Output: Urine 1400 Other: # Voids 1 Physical Exam revealed a 66-year-old female in no distress Head: Atraumatic, normocephalic. HEENT:[Neck is supple.] [No neck masses.] [No thyromegaly.] [No JVD.] Chest: [Clear throughout, no crackles, no rhonchi, no wheezes.] Slightly diminished breath sounds at the right base. Cardiac Exam: [Normal S1 and S2, no S3 gallop, no murmur.] Abdomen: [Soft, nontender, no megaly, no rebound, no guarding, normal bowel sounds.] Extremities: [No clubbing, no edema, no cyanosis.] Right lower extremity is immobilized by soft immobilizer. Neurological Exam: [No focal neurologic deficit.] Alert and oriented 3. Psychiatric: Normal mood affect and normal mental status examination. Skin: No rashes. Results - Laboratory Findings CBC and BMP: 11/21/21 02:57 11/21/21 02:57 PT/INR, D-dimer PT 10.5 sec (9.0-12.0) 11/20/21 11:03 INR 1.0 (<1.2) 11/20/21 11:03 Abnormal lab findings: Abnormal Labs 11/20/21 11/20/21 11/20/21 11:03 11:39 20:17 RBC Hgb Hct Neutrophils # 8.4 H APTT Sodium 135 L Carbon Dioxide BUN 18 H Glucose 101 H Plasma Lactic Acid Rafael 0.5 L Albumin Procalcitonin Urine Ketones 11/20/21 11/20/21 11/21/21 20:17 23:35 02:57 RBC 3.16 L Hgb 10.3 L Hct 31.4 L Neutrophils # 8.4 H APTT 74.9 H Sodium Carbon Dioxide BUN Glucose Plasma Lactic Acid Rafael Albumin Procalcitonin Urine Ketones 2+ H 03/22/22 03/22/22 03/22/22 02:57 02:57 02:57 RBC Hgb Hct Neutrophils # APTT 44.8 H Sodium 135 L Carbon Dioxide 19 L BUN Glucose Plasma Lactic Acid Rafael Albumin 3.3 L Procalcitonin 0.12 H Urine Ketones - Diagnostic Findings CT scan - chest: image reviewed (As noted in HPI.) Assessment and Plan Assessment: Impression: Acute pulmonary embolism, triggered by recent right lower extremity fractures, surgery, and immobility. Strongly suspect a right lower extremity deep vein thrombosis Suspect right pulmonary infarction Recommendation: Continue present treatment plan Transition patient to oral anticoagulation therapy and should be on treatment for at least 3 months up to 6 months treatment. Pain medication for her right-sided pleuritic pain Will clear for discharge planning if cleared by other consultants Follow-up on outpatient basis if needed. Time with Patient: Greater than 30
--- NOTE | 2021-11-21 12:33 | ECHOF ---
Referral Reason:rule out right heart strain MEASUREMENTS -------- HEIGHT: 165.1 cm WEIGHT: 90.7 kg BP: 131/82 RVIDd: 2.7 cm (< 3.3) IVSd: 0.9 cm (0.6 - 1.1) LVIDd: 4.4 cm (3.9 - 5.3) LVPWd: 1.0 cm (0.6 - 1.1) IVSs: 1.6 cm LVIDs: 3.0 cm LVPWs: 1.6 cm LA Diam: 3.2 cm (2.7 - 3.8) Ao Diam: 3.2 cm (2.0 - 3.7) AV Cusp: 2.0 cm (1.5 - 2.6) MV EXCURSION: 15.293 mm (> 18.000) MV EF SLOPE: 57 mm/s (70 - 150) EPSS: 0.5 cm MV E Jasson: 0.56 m/s MV DecT: 260 ms MV A Jasson: 0.61 m/s MV E/A Ratio: 0.92 TAPSE: 23.82 mm FINDINGS -------- Sinus rhythm. This was a technically adequate study. The left ventricular size is normal. Left ventricular wall thickness is normal. Overall left vent ricular systolic function is normal with, an EF between 60 - 65 %. The right ventricle is normal in size. The right ventricular systolic function is normal. The left atrium is normal in size. The right atrium is normal in size. Interatrial and interventricular septum intact. The aortic valve is trileaflet, and appears structurally normal. No aortic stenosis or regurgitation. The mitral valve is normal. Trace tricuspid regurgitation present. Unable to estimate RVSP due to inadequate TR jet spectral do ppler profile. The pulmonic valve was not well visualized. The aortic root size is normal. Normal inferior vena cava with normal inspiratory collapse consistent with estimated right atrial pre ssure of 5 mmHg. There is no pericardial effusion. CONCLUSIONS -------- 1. The left ventricular size is normal. 2. Left ventricular wall thickness is normal. 3. Overall left ventricular systolic function is normal with, an EF between 60 - 65 %. 4. The right ventricular systolic function is normal. 5. Trace tricuspid regurgitation present. 6. There is no pericardial effusion. HEALTH CARE MARKETING MANAGER: Amanda El RDCS
--- NOTE | 2021-11-21 13:49 | P.DS ---
Providers Date of admission: 11/20/21 14:03 Expected date of discharge: 11/21/21 Attending physician: Natalie Bojorquez DO Consults: 11/20/21 14:04 Consult Physician Routine Consulting Provider: [facility] Consult Reason/Comments: Bilateral pulmonary embolisms Do you want consulting provider notified?: Yes Consult Physician Routine Consulting Provider: Malinda Thomas Consult Reason/Comments: Bilateral pulmonary embolisms, shortness of breath Do you want consulting provider notified?: Yes Primary care physician: Kolton Fregoso Hospital Course: Discharge Diagnosis: Acute Bilateral pulmonary emboli secondary to recent right lower extremity fractures, surgery, and immobility, patient discharged home on oral anticoagulan t with Paul and recommend continuing oral anticoagulation for 6 months. Recent tibial/fibula fracture with surgical repair on 10/27/21, patient will need to follow up outpatient as recommended by surgery team. Hospital Course: Patient is a very pleasant 66-year-old female with no significant past medical history. She recently had a dislocated fractured tibial and fibula resulting in surgical repair in [place] on 10/27/21. Patient reports shortly after discharge her and her traveled 3 days by car home from [place]. Patient states she has remained nonweightbearing to her right lower extremity as instructed and has been taking aspirin 81 mg twice daily for DVT prophylaxis. Patient reports that over the past 4 days she has been experiencing progressively worsening shortness of breath, cough and pain to left ribs when coughing. Patient denies having any recent fevers, chills, diaphoresis, palpitations, abdominal pain, nausea, vomiting, or experiencing any redness/swelling/tingling/numbness in her lower extremities. In the emergency department patient underwent full evaluation and was found to be 93% on room air and tachycardic with heart rate of 102. patient underwent a CTA which revealed bilateral acute pulmonary emboli involving the secondary and distal branches and bilateral infiltrate with small pleural effusion pulmonary infarct was not able to be ruled out. EKG was completed showing sinus tachycardia at 101 bpm with no noted T-wave or ST abnormalities, showing no signs of acute ischemia. CBC and CMP were unremarka ble. Troponin negative at less than 0.012. ProBNP 60. Patient was started on heparin infusion and admitted under our services with consultation to pulmonology and cardiology. Patient underwent an echocardiogram which revealed a normal EF of 60-65% with no significant valvular abnormalities and no signs of right ventricular strain. She was seen and evaluated by cardiology and pulmonary. Cardiology transition patient to oral anticoagulation with Eliquis and recommending patient to continue this oral anticoagulant for 6 months. Pulmonary recommending follow-up outpatient basis as needed and recommending continued pain medication as needed for right-sided pleuritic pain. Patient is medically stable at this time, SpO2 95% on room air. Patient denies having any chest pain or palpitations. Patient does report pain to right ribs worse with movement, but controlled by current pain medication regimen. Discharge instructions discussed with patient and her thoroughly. All questions answered. Patient medically stable for discharge and to follow up outpatient with PCP, cardiology, and pulmonology. Physical exam: Vital signs reviewed and stable. General: Nontoxic, no distress and appears stated age. Derm: Skin warm and dry, normal coloration for ethnicity. Head: Atraumatic, normocephalic and symmetric. Eyes: EOMs intact, no lid lag, and anicteric sclera Mouth: no lip lesions, mucus membranes moist Cardiovascular: regular rate and rhythm with normal S1S2, no murmur, positive posterior tibial pulses bilaterally, and cap refill < 2 seconds. Lungs: Respirations even, regular, and unlabored on room air. Lungs CTA bilaterally, no rhonchi, no rales, no wheezing, and no accessory muscle usage. Abdominal: soft, nontender to palpation, no guarding, no appreciable organomegaly Ext: ROM intact. No gross muscle atrophy, no edema, no contractures Neuro: Speech clear, face symmetrical and CN II-XII grossly intact with no noted focal neuro deficits Psych: Alert and oriented to person, place, time, and situation. Appropriate and pleasant affect. A total of 40 minutes of time were spent preparing this complex discharge summary. Patient Condition at Discharge: Stable Plan - Discharge Summary Discharge Rx Participant: No New Discharge Prescriptions: New Apixaban [Eliquis Starter Pack (for VTE)] 5 - 10 mg PO DIRECTED 30 Days #1 each HYDROcodone/APAP 5-325MG [[place] 5-325] 1 - 2 each PO Q6H PRN #24 tab PRN Reason: Moderate Pain Continue guaiFENesin [Mucinex] 600 mg PO DAILY Cholecalciferol [Vitamin D3 (25 Mcg = 1000 Iu)] 50 mcg PO DAILY Calcium Carbonate [Calcium] 600 mg PO DAILY Multivitamins, Thera [Multivitamin (formulary)] 1 tab PO DAILY Famotidine 20 mg PO DAILY Ascorbic Acid [Vitamin C] 1,000 mg PO DAILY Discontinued Aspirin EC [Ecotrin Low Dose] 81 mg PO BID Discharge Medication List Ascorbic Acid [Vitamin C] 1,000 mg PO DAILY 11/20/21 [History] Calcium Carbonate [Calcium] 600 mg PO DAILY 11/20/21 [History] Cholecalciferol [Vitamin D3 (25 Mcg = 1000 Iu)] 50 mcg PO DAILY 11/20/21 [History] Famotidine 20 mg PO DAILY 11/20/21 [History] Multivitamins, Thera [Multivitamin (formulary)] 1 tab PO DAILY 11/20/21 [History] guaiFENesin [Mucinex] 600 mg PO DAILY 11/20/21 [History] Apixaban [Eliquis Starter Pack (for VTE)] 5 - 10 mg PO DIRECTED 30 Days #1 each 11/21/21 [Rx] HYDROcodone/APAP 5-325MG [[place] 5-325] 1 - 2 each PO Q6H PRN #24 tab 11/21/21 [Rx] Follow up Appointment(s)/Referral(s): Malinda Thomas MD [STAFF PHYSICIAN] - 1 Week Brijesh Obregon MD [STAFF PHYSICIAN] - 2 Weeks Kolton Fregoso MD [Primary Care Provider] - 1-2 days Patient Instructions/Handouts: Pulmonary Embolism (ED) Activity/Diet/Wound Care/Special Instructions: Activity: As tolerated. Take breaks as needed. Diet: Heart healthy and carb consistent diet. Avoid salts, or foods with hidden salts such as canned or boxed foods and frozen dinners. Extra salt makes your heart work harder and traps the fluid in your body for longer. Special Instructions: Take all of your medications as directed and remember to keep all of your doctor's appointments and follow-up as needed. You are also being discharged home on a blood thinner, Eliquis. This is very important to take daily as directed until otherwise advised by your director external communications-Dr. Obregon. Being that you are being placed on a blood thinner it is very important to watch for any signs of bleeding and notify your doctor immediately if you notice any bleeding. It is also important to remove any trip hazards such as rugs or loose extension cords from your home to prevent unnecessary falls and if you do experience a fall or head injury, it is extremely important to be evaluated by a medical provider immediately to ensure no internal bleeding. Thank you for allowing us to participate in your care, it was truly a pleasure having you for our patient!!! Discharge Disposition: HOME SELF-CARE
[2021-11-21 14:19] VITALS: BMI 33.3
== END 2021-11-21 17:46 | disposition home or self-care (01) ==
LOC: EC 10:08 → 3SCARD 14:03
PROVIDERS: ADMIT Internal Medicine; ATTEND Internal Medicine
DX: I26.99 Other pulmonary embolism without acute cor pulmonale (principal); S82.891D Other fracture of right lower leg, subsequent encounter for closed fracture with routine healing; W19.XXXD Unspecified fall, subsequent encounter; R91.8 Other nonspecific abnormal finding of lung field; Z79.82 Long term (current) use of aspirin; Z79.899 Other long term (current) drug therapy; Z88.5 Allergy status to narcotic agent; Z87.440 Personal history of urinary (tract) infections; Z98.890 Other specified postprocedural states; Z82.49 Family history of ischemic heart disease and other diseases of the circulatory system; Z82.0 Family history of epilepsy and other diseases of the nervous system
CPT/HCPCS: 96366 ×3; 96376; 96365; 99285; 36415; 93005; 93306; 83880; 80053 ×2; 83605; 83735; 84484; 85025 ×2; 85610; 85730 ×2; 81003; 84145; 71275; G0378 ×2; J1644 ×3; Q9967

== ENCOUNTER → 2022-02-14 | Outpatient (CLI) | payer BC ==
--- NOTE | 2022-02-15 11:54 | MM ---
Reason for Exam: Screening (asymptomatic). Last mammogram was performed 1 year(s) and 4 month(s) ago. Patient History: Menarche at age 15. First Full-Term at age 20. Postmenopausal. Patient used Estrogen for 2 years. Patient used Hormonal Contraceptives for 10 years. Paternal cousin had breast cancer, age 40. Maternal cousin had breast cancer, age 50. Risk Values: Delmi 5 year model risk: 1.2%. NCI Lifetime model risk: 4.7%. Prior Study Comparison: 02/12/2019 Bilateral Screening Mammogram, [facility]. 02/17/2019 Right Diagnostic Mammogram, [facility]. 10/10/2020 Bilateral Screening Mammogram, [facility]. Tissue Density: There are scattered fibroglandular densities. Findings: Analyzed By CAD. Benign-appearing bilateral axillary lymph nodes are redemonstrated. There is no suspicious group of microcalcifications or new suspicious mass in either breast. Overall Assessment: Benign, BI-RAD 2 Management: Screening Mammogram of both breasts in 1 year. A clinical breast exam by your physician is recommended on an annual basis and results should be correlated with mammographic findings. Electronically signed and approved by: Terrence Navarro M.D.
== END | disposition home or self-care (01) ==
LOC: RADMAMWWP 10:50
PROVIDERS: ATTEND Obstetrics & Gynecology
DX: Z12.31 Encounter for screening mammogram for malignant neoplasm of breast (principal); Z80.3 Family history of malignant neoplasm of breast; Z78.0 Asymptomatic menopausal state
CPT/HCPCS: 77063; 77067

== ENCOUNTER 2022-02-28 11:15 | Day surgery (SDC) | payer BC ==
[2022-02-26 13:41] VITALS: BMI 34.1
--- NOTE | 2022-02-27 19:32 | HP ---
HISTORY AND PHYSICAL DATE OF SURGERY: 02/28/2022 Nahomy Gibbs is a 66-year-old patient who was seen with irritating fixation of right ankle, history of ORIF of the syndesmosis. I discussed removal of the two syndesmotic screws. She was agreeable. Consent was obtained. PAST MEDICAL HISTORY: Noncontributory. SURGICAL HISTORY: ORIF right ankle. DAILY MEDICATIONS: Tylenol. ALLERGIES: NONE REPORTED. SOCIAL HISTORY: She denies tobacco use. PHYSICAL EVALUATION OF THE RIGHT ANKLE: She has well-healed incisions, limited dorsiflexion of the ankle with pain. She has some tenderness over palpation of lateral hardware. Distal neurovascular exam is intact. Radiographs of the right ankle revealed stable and well-healed fracture, stable hardware. IMPRESSION: 1. Irritating internal fixation of right ankle. 2. History of ORIF right ankle syndesmosis. PLAN: Removal of syndesmotic screws, right ankle. MMODL / IJN: [id number] /
[~2022-02-28 11:15] MED LIST: DEXAMETHASONE SOD PHOSPHATE 4 MG/ML 1 ML VIAL IV ONE; HYDROmorphone 0.5 MG/0.5 ML SYRINGE IVP PRN; LACTATED RINGERS 1,000 ML IV SCH; LIDOCAINE 1% (10MG/ML) FOR IV START INTRADERMA PRN; MIDAZOLAM 2 MG/2 ML VIAL IV PRN; ONDANSETRON 4 MG/2 ML VIAL IVP ONE
[2022-02-28] MEDS ORDERED: LIDOCAINE 2% INJ 20 MG/ML (2 ML VIAL) ONE (12:31)
[2022-02-28] MEDS ORDERED: PROPOFOL 10 MG/ML 20 ML VIAL IV ONE (12:31)
[2022-02-28] MEDS ORDERED: fentaNYL (PF) 50 MCG/ML 2 ML AMP ONE (12:31)
[2022-02-28] MEDS ORDERED: MIDAZOLAM 2 MG/2 ML VIAL ONE (12:31)
[2022-02-28] MEDS ORDERED: BUPIVACAINE (PF) 0.25% 30 ML VIAL SQ ONE (12:52)
--- NOTE | 2022-02-28 13:02 | P.OP ---
Date of Procedure: 02/28/22 Preoperative Diagnosis: Irritating internal fixation right ankle Postoperative Diagnosis: Irritating internal fixation right ankle Procedure(s) Performed: Removal irritating irritating hardware right ankle(2 syndesmotic screws) Anesthesia: ALLEN local Surgeon: Stephen Knutson [employer]let Mill Operator #1: Jeet Marques Estimated Blood Loss (ml): 4 Pathology: none sent Condition: stable Disposition: PACU Indications for Procedure: 66-year-old patient was seen with irritating hardware right anklesyndesmotic screws. I discussed removal of the 2 syndesmotic screws, patient was agreeable and consent was obtained. Operative Findings: See description of procedure Description of Procedure: Patient was taken to the operative suite after receiving preoperative IV antibiotics. Patient underwent a general anesthetic by the department of anesthesia. The right lower extremity was prepped and draped in the normal sterile orthopedic fashion. C-arm was brought into the field to confirm the location of the syndesmotic screws. An incision was made over the previous cicatrix sharply through skin in the area of the 2 syndesmotic screws. While Harish HOOD retractor I dissected down to the screw heads. There were easily identified. Both syndesmotic screws were now removed without difficulty. The wound was irrigated. Hemostasis achieved via electrocautery. Subcutaneous soft tissues repaired with 2-0 Vicryl. Skin repair with nylon suture. The area was infiltrated with quarter percent plain Marcaine for postoperative pain management. Sterile dressings were applied. No tourniquet was utilized. The patient was awakened having tolerated procedure well. Harish HOOD assisted in this procedure.
[2022-02-28 13:22] VITALS: TEMP 96.8
[2022-02-28 13:35] VITALS: RESP 16
[2022-02-28 14:13] VITALS: BP 131/84; PULSE 69
== END 2022-02-28 14:54 | disposition home or self-care (01) ==
LOC: OR 11:15
PROVIDERS: ATTEND Orthopaedic Surgery
DX: T84.84XA Pain due to internal orthopedic prosthetic devices, implants and grafts, initial encounter (principal); M25.571 Pain in right ankle and joints of right foot; Z88.5 Allergy status to narcotic agent; Z86.711 Personal history of pulmonary embolism; Z79.01 Long term (current) use of anticoagulants; Z86.718 Personal history of other venous thrombosis and embolism; Z81.8 Family history of other mental and behavioral disorders; Z82.49 Family history of ischemic heart disease and other diseases of the circulatory system; Y83.8 Other surgical procedures as the cause of abnormal reaction of the patient, or of later complication, without mention of misadventure at the time of the procedure
CPT/HCPCS: 20680; J2250; J1100; J0690; J2405; J3010; J2704; J2001

== ENCOUNTER → 2023-02-15 | Outpatient (CLI) | payer MEDICARE ==
--- NOTE | 2023-02-18 07:45 | MM ---
Reason for Exam: Screening (asymptomatic). Last screening mammogram was performed 12 month(s) ago. Patient History: Menarche at age 15. First Full-Term at age 20. Postmenopausal. Patient used Estrogen for 2 years. Patient used Hormonal Contraceptives for 10 years. Paternal cousin had breast cancer, age 40. Maternal cousin had breast cancer, age 50. Risk Values: Delmi 5 year model risk: 1.2%. NCI Lifetime model risk: 4.6%. Prior Study Comparison: 02/17/2019 Right Diagnostic Mammogram, [facility]. 10/10/2020 Bilateral Screening Mammogram, [facility]. 02/14/2022 Bilateral MG 3D screening mammo w/cad, [facility]. Tissue Density: The breast tissue is almost entirely fat. Findings: Analyzed By CAD. There is no suspicious group of microcalcifications or new suspicious mass in either breast. Overall Assessment: Negative, BI-RAD 1 Management: Screening Mammogram of both breasts in [address] [facility] will attempt to contact patient to return for supplemental views and ultrasound if indicated. Patient should continue monthly self-breast exams. A clinical breast exam by your physician is recommended on an annual basis. This exam should not preclude additional follow-up of suspicious palpable abnormalities. Note on Delmi scores and lifetime risk: 1. A Delmi score greater than 3% is considered moderate risk. If this is the case, consider specialist referral to assess eligibility for a risk reducing agent. 2. If overall lifetime risk for the development of breast cancer is 20% or higher, the patient may qualify for future screening with alternating mammogram and breast MRI. Electronically signed and approved by: Javon Lehman DO
== END | disposition home or self-care (01) ==
LOC: RADMAMWWP 09:18
PROVIDERS: ATTEND Family Medicine
DX: Z12.31 Encounter for screening mammogram for malignant neoplasm of breast (principal); Z78.0 Asymptomatic menopausal state; Z80.3 Family history of malignant neoplasm of breast
CPT/HCPCS: 77063; 77067

== ENCOUNTER → 2024-02-17 | Outpatient (CLI) | payer MEDICARE ==
--- NOTE | 2024-02-19 09:58 | MM ---
Reason for Exam: Screening (asymptomatic). Last screening mammogram was performed 12 month(s) ago. Patient History: Menarche at age 15. First Full-Term at age 20. Postmenopausal. Patient used Estrogen for 2 years. Patient used Hormonal Contraceptives for 10 years. Paternal cousin had breast cancer, age 40. Maternal cousin had breast cancer, age 50. Risk Values: Delmi 5 year model risk: 1.2%. NCI Lifetime model risk: 4.4%. Prior Study Comparison: 10/10/2020 Bilateral Screening Mammogram, [facility]. 02/14/2022 Bilateral MG 3D screening mammo w/cad, [facility]. 02/15/2023 Bilateral MG 3D screening mammo w/cad, [facility]. Tissue Density: The breasts are almost entirely fatty. Findings: Analyzed By CAD. There is no suspicious group of microcalcifications or new suspicious mass in either breast. Overall Assessment: Negative, BI-RAD 1 Management: Screening Mammogram of both breasts in 1 year. . Patient should continue monthly self-breast exams. A clinical breast exam by your physician is recommended on an annual basis. This exam should not preclude additional follow-up of suspicious palpable abnormalities. Note on Delmi scores and lifetime risk: 1. A Delmi score greater than 3% is considered moderate risk. If this is the case, consider specialist referral to assess eligibility for a risk reducing agent. 2. If overall lifetime risk for the development of breast cancer is 20% or higher, the patient may qualify for future screening with alternating mammogram and breast MRI. Electronically signed and approved by: Johnson Sanchez M.D. Radiologis
--- NOTE | 2024-02-19 17:44 | BD ---
EXAMINATION TYPE: Axial Bone Density DATE OF EXAM: 02/17/2024 CLINICAL HISTORY: 68 years old Female. ICD-10 CODE: Z78.0 ASYMPTOMATIC MENOPAUSAL Height: 64.5 Weight: 224 FRAX RISK QUESTIONS: Family History (Parent hip fracture): yes History of Fracture in Adulthood: yes Secondary Osteoporosis: no RISK FACTORS HISTORY OF: Surgery to Spine/Hip(right/left)/Wrist (right/left): no MEDICATIONS: Thyroid Medications: no Osteoporosis Medications: no EXAM MEASUREMENTS: Bone mineral densitometry was performed using the TYFFON System. Bone mineral density as measured about the Lumbar spine is: ----- L1-L4(G/cm2): 1.268 T Score Values are as follows: ----- L1: -0.4 ----- L2: 0.0 ----- L3: 0.9 ----- L4: 1.9 ----- L1-L4: 0.7 Z Score Values are as follows: ----- L1: 0.1 ----- L2: 0.4 ----- L3: 1.4 ----- L4: 2.4 ----- L1-L4: 1.2 Bone mineral density baseline Bone mineral density about the R hip (g/cm2): 1.109 Bone mineral density about the L hip (g/cm2): 1.158 T Score values are as follows: -----R Neck: -0.9 -----L Neck: -0.7 -----R Total: 0.8 -----L Total: 1.2 Z Score values are as follows: -----R Neck: -0.1 -----L Neck: 0.0 -----R Total: 1.2 -----L Total: 1.6 Bone mineral density baseline FRAX%s: The graph provided illustrates a 21.6% chance for a major osteoporotic fx and a 1.0% chance f or the hips probability for fx in 10 years time. IMPRESSION: Normal (Values between +1 and -1 indicate normal bone mass). Consider repeating this study in 5 year s or sooner if there is some new clinical indication. NOTE: T-SCORE=SD OF THE YOUNG ADULT MEAN.
== END | disposition home or self-care (01) ==
LOC: RADBDWWP 10:09
PROVIDERS: ATTEND Family Medicine
DX: Z12.31 Encounter for screening mammogram for malignant neoplasm of breast (principal); Z78.0 Asymptomatic menopausal state; Z80.3 Family history of malignant neoplasm of breast
CPT/HCPCS: 77063; 77067; 77080

== ENCOUNTER → 2025-02-09 | Outpatient (CLI) | payer MEDICARE ==
[2025-02-09 15:22] LABS: Basophils # (A) 0.04 X 10*3/uL (0.00-0.10); Basophils % (A) 0.8 %; Eosinophils # (A) 0.11 X 10*3/uL (0.04-0.35); Eosinophils % (A) 2.2 %; HCT 44.7 % (37.2-46.3); HGB 14.5 g/dL (12.0-15.0); Lymphocytes # (A) 1.66 X 10*3/uL (0.90-5.00); Lymphocytes % (A) 33.5 %; MCH 31.1 pg (27.0-32.0); MCHC 32.4 g/dL (32.0-37.0); MCV 95.9 FL (80.0-97.0); Mean Platelet Volume 10.9 FL (9.5-12.2); Monocytes # (A) 0.46 X 10*3/uL (0.20-1.00); Monocytes % (A) 9.3 %; NRBC Per 100 WBC 0 X 10*3/uL (0.00-0.01); Neutrophils # (A) 2.67 X 10*3/uL (1.80-7.70); Platelet Count 247 X 10*3/uL (140-440); RBC 4.66 X 10*6/uL (4.10-5.20); RDW 13.4 % (11.5-14.5); WBC 4.95 X 10*3/uL (4.50-10.00)
[2025-02-09 19:38] LABS: ALT 30 U/L (8-44); AST 26 U/L (13-35); Albumin 4.4 g/dL (3.8-4.9); Albumin/Globulin Ratio 1.63 Ratio (1.60-3.17); Alkaline Phosphatase 84 U/L (41-126); Blood Urea Nitrogen 19.6 mg/dL (9.0-27.0); Calcium 9.1 mg/dL (8.7-10.3); Carbon Dioxide 23.2 mmol/L (21.6-31.8); Chloride 107 mmol/L (96-109); Chol/HDL Ratio 4.14 Ratio; Globulin 2.7 g/dL (1.6-3.3); Glucose 103 mg/dL (70-110); LDL Cholesterol,Calculated 124.8 mg/dL (0.0-131.0); Potassium 4.8 mmol/L (3.5-5.5); Sodium 143 mmol/L (135-145); Total Bilirubin 0.4 mg/dL (0.3-1.2); Total Protein 7.1 g/dL (6.2-8.2)
== END | disposition home or self-care (01) ==
LOC: LABWHC1 12:12
PROVIDERS: ATTEND Family Medicine
DX: E55.9 Vitamin D deficiency, unspecified (principal); E78.00 Pure hypercholesterolemia, unspecified
CPT/HCPCS: 36415; 80053; 80061; 82306; 84443; 85025

== ENCOUNTER → 2025-02-17 | Outpatient (CLI) | payer MEDICARE ==
--- NOTE | 2025-02-17 09:21 | MM ---
Reason for Exam: Screening (asymptomatic). Last screening mammogram was performed 12 month(s) ago. Patient History: Menarche at age 15. First Full-Term at age 20. Postmenopausal. Patient used Estrogen for 2 years. Patient used Hormonal Contraceptives for 10 years. Paternal cousin had breast cancer, age 40. Maternal cousin had breast cancer, age 50. Risk Values: Delmi 5 year model risk: 1.2%. NCI Lifetime model risk: 4.2%. Prior Study Comparison: 02/14/2022 Bilateral MG 3D screening mammo w/cad, [facility]. 02/15/2023 Bilateral MG 3D screening mammo w/cad, [facility]. 02/17/2024 Bilateral MG 3D screening mammo w/cad, [facility]. Tissue Density: The breasts are almost entirely fatty. Findings: Analyzed By CAD. There is no suspicious group of microcalcifications or new suspicious mass in either breast. Overall Assessment: Negative, BI-RAD 1 Management: Screening Mammogram of both breasts in 1 year. Patient should continue monthly self-breast exams. A clinical breast exam by your physician is recommended on an annual basis. This exam should not preclude additional follow-up of suspicious palpable abnormalities. Note on Delmi scores and lifetime risk: 1. A Delmi score greater than 3% is considered moderate risk. If this is the case, consider specialist referral to assess eligibility for a risk reducing agent. 2. If overall lifetime risk for the development of breast cancer is 20% or higher, the patient may qualify for future screening with alternating mammogram and breast MRI. [facility], , 02/17/2025 9:18 AM. Electronically signed and approved by: Portia Barahona M.D. Radiologist
== END | disposition home or self-care (01) ==
LOC: RADMAMWWP 08:40
PROVIDERS: ATTEND Family Medicine
DX: Z12.31 Encounter for screening mammogram for malignant neoplasm of breast (principal); R92.313 Mammographic fatty tissue density, bilateral breasts; Z78.0 Asymptomatic menopausal state; Z92.0 Personal history of contraception; Z80.3 Family history of malignant neoplasm of breast
CPT/HCPCS: 77063; 77067